=== PATIENT | male | born 1970 | race Caucasian/White ===

== ENCOUNTER 2017-03-02 11:39 | Emergency (ER) | payer SELFPAY ==
[2017-03-02 11:55] VITALS: BP 149/91
--- NOTE | 2017-03-02 12:06 | UC ---
Throat Pain/Nasal Giovanni HPI - HPI Summary HPI Summary: sinus pain and pressure x 3 weeks + pnd, cough, nasal congestion , no fever, no chills - History of Current Complaint Chief Complaint: UCRespiratory Stated Complaint: COLD SYMPTOMS Time Seen by Provider: 03/02/17 11:47 Hx Obtained From: Patient Onset/Duration: Gradual Onset, Lasting Weeks - 3, Still Present Severity: Moderate Cough: Nonproductive Associated Signs & Symptoms: Positive: Sinus Discomfort, Nasal Discharge. Negative: Fever, Rash - Allergies/Home Medications Allergies/Adverse Reactions: Allergies Allergy/AdvReac Type Severity Reaction Status Date / Time No Known Allergies Allergy Verified 03/02/17 11:55 Home Medications: Home Medications Omeprazole CAP* [Prilosec CAP* 20 MG] 20 mg PO DAILY 03/02/17 [History Confirmed 03/02/17] PMH/Surg Hx/FS Hx/Imm Hx Previously Healthy: Yes GI/ History: Gastroesophageal Reflux Other History Of: Negative For: HIV, Hepatitis B, Hepatitis C, Anticoagulant Therapy - Surgical History Surgical History: None - Family History Known Family History: Negative: Diabetes - Social History Alcohol Use: Occasionally Substance Use Type: None Smoking Status (MU): Former Smoker Type: Cigarettes Amount Used/How Often: 1 1/2 ppd Length of Time of Smoking/Using Tobacco: started at age 17 When Did the Patient Quit Smoking/Using Tobacco: 2006 Review of Systems Constitutional: Negative Skin: Negative Eyes: Negative ENT: Nasal Discharge, Sinus Congestion, Sinus Pain/Tenderness Respiratory: Cough Is Patient Immunocompromised?: No All Other Systems Reviewed And Are Negative: Yes Physical Exam Triage Information Reviewed: Yes Appearance: Well-Appearing, No Pain Distress, Well-Nourished Vital Signs: Initial Vital Signs Temp 97.3 F 03/02/17 11:44 Pulse 80 03/02/17 11:44 Resp 16 03/02/17 11:44 BP 149/91 03/02/17 11:44 Pulse Ox 100 03/02/17 11:44 Vital Signs Reviewed: Yes ENT: Positive: Normal ENT inspection, Hearing grossly normal, Pharynx normal, Nasal congestion, Nasal drainage Neck: Positive: Supple, Nontender, No Lymphadenopathy Respiratory: Positive: Chest non-tender, Lungs clear, Normal breath sounds Cardiovascular: Positive: RRR, No Murmur, Pulses Normal Skin Exam: Normal Throat Pain/Nasal Course/Dx - Differential Dx/Diagnosis Provider Diagnoses: Sinusitis Discharge - Discharge Plan Condition: Stable Disposition: HOME Prescriptions: Amoxicillin/Clavulanate TAB* [Augmentin TAB 875*] 875 mg PO BID #20 tab Patient Education Materials: Sinusitis (ED) Referrals: No Primary Care Phys,NOPCP [Primary Care Provider] - 7 Days
== END 2017-03-02 12:08 | disposition home or self-care (01) ==
LOC: UCCORT 11:39
DX: J32.9 Chronic sinusitis, unspecified (principal); Z87.891 Personal history of nicotine dependence
CPT/HCPCS: 99212; G0463

== ENCOUNTER 2017-04-22 09:35 | Emergency (ER) | payer SELFPAY ==
--- NOTE | 2017-04-22 09:55 | UC ---
Throat Pain/Nasal Giovanni HPI - HPI Summary HPI Summary: 47 year old male presents with sore throat. - History of Current Complaint Stated Complaint: SORE THROAT Time Seen by Provider: 04/22/17 09:55 Hx Obtained From: Patient Onset/Duration: Sudden Onset Severity: Moderate Pain Scale Used: 0-10 Numeric - 5 Cough: Nonproductive Associated Signs & Symptoms: Positive: Negative - Allergies/Home Medications Allergies/Adverse Reactions: Allergies Allergy/AdvReac Type Severity Reaction Status Date / Time No Known Allergies Allergy Verified 04/22/17 10:00 Home Medications: Home Medications Dextromethorphan-Phenylephrine [Theraflu Severe Cold & Co] 2 tab PO Q4H PRN [History Confirmed 04/22/17] PMH/Surg Hx/FS Hx/Imm Hx Previously Healthy: Yes Other History Of: Negative For: HIV, Hepatitis B, Hepatitis C, Anticoagulant Therapy - Surgical History Surgical History: None - Family History Known Family History: Negative: Diabetes - Social History Alcohol Use: Occasionally Substance Use Type: None Smoking Status (MU): Former Smoker Type: Cigarettes Amount Used/How Often: 1 1/2 ppd Length of Time of Smoking/Using Tobacco: started at age 17 When Did the Patient Quit Smoking/Using Tobacco: 2006 Review of Systems Constitutional: Negative Skin: Negative Eyes: Negative ENT: Nasal Discharge, Sinus Congestion Respiratory: Negative Cardiovascular: Negative Gastrointestinal: Negative Genitourinary: Negative Motor: Negative Neurovascular: Negative Musculoskeletal: Negative Neurological: Negative Psychological: Negative All Other Systems Reviewed And Are Negative: Yes Physical Exam Triage Information Reviewed: Yes Vital Signs Reviewed: Yes Eye Exam: Normal ENT: Positive: Nasal congestion, Nasal drainage, Tonsillar swelling Dental Exam: Normal Neck exam: Normal Neck: Positive: 1 Respiratory Exam: Normal Cardiovascular Exam: Normal Abdominal Exam: Normal Musculoskeletal Exam: Normal Neurological Exam: Normal Psychological Exam: Normal Skin Exam: Normal Throat Pain/Nasal Course/Dx - Differential Dx/Diagnosis Provider Diagnoses: pharyngitis. post nasal drip Discharge - Discharge Plan Condition: Stable Disposition: HOME Prescriptions: Amoxicillin/Clavulanate TAB* [Augmentin TAB 875*] 875 mg PO BID #20 tab LoraTADine TAB(NF) [Claritin 10 MG TAB(NF)] 10 mg PO DAILY #30 tab Magic M W2 Jose D/Maal/Nyst/Lido* 5 ml SWISH SPIT QID PRN #120 ml PRN Reason: Pain Patient Education Materials: Pharyngitis (ED) Referrals: No Primary Care Phys,NOPCP [Primary Care Provider] -
[2017-04-22 10:04] VITALS: BP 149/89
--- NOTE | 2017-04-25 09:11 | UC ---
Progress - Progress Note Progress Note: please inform pt of throat cx neg for strep. pt can stop abx, they are not indicated.
== END 2017-04-22 10:45 | disposition home or self-care (01) ==
LOC: UCCORT 09:35
DX: J02.9 Acute pharyngitis, unspecified (principal); R09.82 Postnasal drip; Z87.891 Personal history of nicotine dependence
CPT/HCPCS: 87070; 99212; G0463

== ENCOUNTER 2017-12-05 18:31 | Emergency (ER) | payer SELFPAY ==
[2017-12-05 18:47] VITALS: BP 145/103
--- NOTE | 2017-12-05 19:17 | UC ---
General HPI - HPI Summary HPI Summary: States he noticed that the inner aspect of his left cheek was bulkier than the right about 2 weeks ago. He started rinsing with salt water but it continued to feel 'boggy'. He chews tobacco but usually murray it on the opposite cheek. Also had GERD and has been on omeprazole for many years. States he has not been to the dentist in many years and he has many issues with his teeth. - History of Current Complaint Chief Complaint: UCGeneralIllness Stated Complaint: ORAL CONCERN Time Seen by Provider: 12/05/17 18:51 Hx Obtained From: Patient Onset/Duration: Sudden Onset, Lasting Weeks Onset Severity: Mild Current Severity: Mild Pain Intensity: 0 - Allergy/Home Medications Allergies/Adverse Reactions: Allergies Allergy/AdvReac Type Severity Reaction Status Date / Time No Known Allergies Allergy Verified 04/22/17 10:00 PMH/Surg Hx/FS Hx/Imm Hx Previously Healthy: Yes GI/ History: Gastroesophageal Reflux Other History Of: Negative For: HIV, Hepatitis B, Hepatitis C, Anticoagulant Therapy - Surgical History Surgical History: None - Family History Known Family History: Negative: Diabetes - Social History Alcohol Use: Rare Substance Use Type: None Smoking Status (MU): Former Smoker Type: Cigarettes, Smokeless Tobacco Amount Used/How Often: 1 1/2 ppd Length of Time of Smoking/Using Tobacco: started at age 17 When Did the Patient Quit Smoking/Using Tobacco: 2006 - Immunization History Most Recent Influenza Vaccination: Not the 2016/2017 Season Review of Systems Constitutional: Negative All Other Systems Reviewed And Are Negative: Yes Physical Exam Triage Information Reviewed: Yes Appearance: Well-Appearing, No Pain Distress, Well-Nourished Vital Signs: Initial Vital Signs Temp 98.2 F 12/05/17 18:42 Pulse 75 12/05/17 18:42 Resp 17 12/05/17 18:42 BP 145/103 12/05/17 18:42 Pulse Ox 99 12/05/17 18:42 Vital Signs Reviewed: Yes Eyes: Positive: Conjunctiva Clear ENT: Positive: Hearing grossly normal, Pharynx normal, TMs normal, Other - oral mucosa normal, more prominent on left than right. No masses along buccal mucosa , no pigmentation, no ulceration, no leukoplakia. No parotid enlargment Dental: Positive: Gross Decay/Caries @ - multiple Neck: Positive: Supple, Nontender, No Lymphadenopathy Respiratory: Positive: Chest non-tender, Lungs clear, Normal breath sounds, No respiratory distress Cardiovascular: Positive: RRR, Pulses Normal, Brisk Capillary Refill Course/Dx - Course Course Of Treatment: discussed with patient dental care and abstain from tobacco. - Differential Dx - Multi-Symptom Provider Diagnoses: Prominent Buccal mucosa without mass Discharge - Sign-Out/Discharge Documenting (check all that apply): Patient Departure - Discharge Plan Condition: Stable Disposition: HOME Patient Education Materials: Gastroesophageal Reflux Disease (ED), Smokeless Tobacco Keratosis (DC) Referrals: No Primary Care Phys,NOPCP [Primary Care Provider] - [facility] [Outside] - Billing Disposition and Condition Condition: STABLE Disposition: Home
== END 2017-12-05 19:15 | disposition home or self-care (01) ==
LOC: UCCORT 18:31
DX: R22.0 Localized swelling, mass and lump, head (principal)
CPT/HCPCS: 99211; G0463

== ENCOUNTER 2018-11-26 14:50 | Emergency (ER) | payer SELFPAY ==
[2018-11-26 15:04] VITALS: BP 147/81
--- NOTE | 2018-11-26 15:06 | UC ---
Skin Complaint HPI - HPI Summary HPI Summary: Patient is a 48 year old , who present today with a rash in pubic area for past 3 days. Some itching and discomfort, no discharge. Had sex with a new partner 3 weeks ago. Denies any other symptoms- no fever or chills. No urinary problems. Tried neosporin which did not help. - History of Current Complaint Time Seen by Provider: 11/26/18 15:00 Stated Complaint: SKIN COMP Hx Obtained From: Patient - Allergy/Home Medications Allergies/Adverse Reactions: Allergies Allergy/AdvReac Type Severity Reaction Status Date / Time No Known Allergies Allergy Verified 11/26/18 15:04 Home Medications: Home Medications Lisinopril TAB* [Prinivil TAB*] 5 mg PO DAILY 11/26/18 [History Confirmed ] PMH/Surg Hx/FS Hx/Imm Hx - Additional Past Medical History Additional PMH: Past Medical History:HTN asthma Past Surgical history:none Family history: non contributory Social history; former smoker, rare alcohol use , no substance abuse. Previously Healthy: Yes Other History Of: Negative For: HIV, Hepatitis B, Hepatitis C, Anticoagulant Therapy - Surgical History Surgical History: None - Family History Known Family History: Positive: Non-Contributory Negative: Diabetes - Social History Alcohol Use: Rare Substance Use Type: None Smoking Status (MU): Former Smoker Type: Cigarettes, Smokeless Tobacco Amount Used/How Often: 1 1/2 ppd Length of Time of Smoking/Using Tobacco: started at age 17 When Did the Patient Quit Smoking/Using Tobacco: 2006 - Immunization History Most Recent Influenza Vaccination: Not the 2017/2017 Season Review of Systems All Other Systems Reviewed And Are Negative: Yes Constitutional: Positive: Negative Skin: Positive: Rash Eyes: Positive: Negative ENT: Positive: Negative Respiratory: Positive: Negative Cardiovascular: Positive: Negative Gastrointestinal: Positive: Negative Genitourinary: Positive: Negative Motor: Positive: Negative Neurovascular: Positive: Negative Musculoskeletal: Positive: Negative Neurological: Positive: Negative Psychological: Positive: Negative Is Patient Immunocompromised?: No Physical Exam - Summary Physical Exam Summary: Vital Signs Reviewed: Yes A+Ox3, no distress Eyes: Conjunctiva Clear ENT: Hearing grossly normal neck: supple Respiratory: Positive: No respiratory distress, No accessory muscle use Cardiovascular: skin color reflect adequate perfusion Musculoskeletal Exam: OBANDO x 4 without difficulty Neurological: Positive: Alert, ambulatory without difficulty Psychological: Positive: Normal Response To Family Skin: there is a vesicular rash - few vescicles noted with erythema. One area of crusting in his pubic area, Triage Information Reviewed: Yes Vital Signs Reviewed: Yes Course/Dx - Course Course Of Treatment: During the visit today, we discussed the findings- herpetic lesion given recent h/o sex with a new partner, not in contact with her anymore. Will also give keflex if there is any bacterial infection , to be feilled if no better in 3 days since he does ot have pcp. Referral put in for PCP. I will prescribe the medication to the pharmacy . Patient expressed understanding . - Diagnoses Provider Diagnosis: Herpes genitalia Discharge - Sign-Out/Discharge Documenting (check all that apply): Patient Departure All imaging exams completed and their final reports reviewed: No Studies - Discharge Plan Condition: Stable Disposition: HOME Prescriptions: Cephalexin CAP* [Keflex CAP*] 500 mg PO TID 10 Days #30 cap ValACYclovir (*) [Valtrex 1 GM(*)] 1 gm PO BID 7 Days #14 tab Patient Education Materials: Genital Herpes Simplex (ED) Referrals: [facility] [Outside] - 1 Week No Primary Care Phys,NOPCP [Primary Care Provider] - Additional Instructions: Start taking valtrex. It has been prescribed to the pharmacy . If your symptoms get worse despite being on valtrex for 2 to 3 days, start keflex. Dont fill it until needed. Follow up with primary care doctor 1 week. I have put in the referral . Patients blood pressure slightly high in Urgent care today , plan follow up with PCP for better control Return to Urgent care / ER if symptoms get worse. - Billing Disposition and Condition Condition: STABLE Disposition: Home
== END 2018-11-26 15:25 | disposition home or self-care (01) ==
LOC: UCCORT 14:50
DX: A60.00 Herpesviral infection of urogenital system, unspecified (principal); I10 Essential (primary) hypertension; Z87.891 Personal history of nicotine dependence
CPT/HCPCS: 99212; G0463

== ENCOUNTER 2019-07-15 13:15 | Emergency (ER) | payer SELFPAY ==
--- NOTE | 2019-07-15 14:41 | UC ---
Throat Pain/Nasal Giovanni HPI - HPI Summary HPI Summary: 49 yo male presents with sinus symptoms. He tells me that over the last week he has had sinus pain/pressure/congestion with post nasal drip and intermittently productive cough. Has been taking mucinex with little relief. Denies fever, chills, sore throat, SOB, rash. - History of Current Complaint Stated Complaint: COUGH, SINUS Time Seen by Provider: 07/15/19 14:41 Hx Obtained From: Patient Onset/Duration: Gradual Onset Severity: Mild Pain Intensity: 3 Pain Scale Used: 0-10 Numeric - Allergies/Home Medications Allergies/Adverse Reactions: Allergies Allergy/AdvReac Type Severity Reaction Status Date / Time No Known Allergies Allergy Verified 07/15/19 14:51 Home Medications: Home Medications Amoxicillin PO (*) [Amoxicillin 875 MG (*)] 875 mg PO BID #14 tab 07/15/19 [Rx] Famotidine TAB* [Pepcid 20 MG TAB*] 20 mg PO DAILY 07/15/19 [History Confirmed 07/15/19] PMH/Surg Hx/FS Hx/Imm Hx GI/ History: Gastroesophageal Reflux Other History Of: Negative For: HIV, Hepatitis B, Hepatitis C, Anticoagulant Therapy - Surgical History Surgical History: None - Family History Known Family History: Positive: Non-Contributory Negative: Diabetes - Social History Occupation: Employed Full-time Lives: With Family Alcohol Use: Rare Substance Use Type: None Smoking Status (MU): Former Smoker Type: Cigarettes, Smokeless Tobacco Amount Used/How Often: 1 1/2 ppd Length of Time of Smoking/Using Tobacco: started at age 17 When Did the Patient Quit Smoking/Using Tobacco: 2006 - Immunization History Most Recent Influenza Vaccination: Not the 2017/2017 Season Review of Systems All Other Systems Reviewed And Are Negative: No Constitutional: Positive: Negative Skin: Positive: Negative Eyes: Positive: Negative ENT: Positive: Nasal Discharge, Sinus Congestion, Sinus Pain/Tenderness Respiratory: Positive: Cough Cardiovascular: Positive: Negative Gastrointestinal: Positive: Negative Neurological/Mental Status: Positive: Negative Psychological: Positive: Negative Physical Exam - Summary Physical Exam Summary: GENERAL: NAD. WDWN. No pain distress. SKIN: No rashes, sores, lesions, or open wounds. HEENT: Head: AT/NC Eyes: EOM intact. Conjunctiva clear without inflammation or discharge. Ears: Hearing grossly normal. TMs intact, no bulging, erythema, or edema. Nose: Nasal mucosa mildly swollen and erythematous with yellow/ clear discharge. TTP maxillary and frontal sinus. Positive post nasal drip Throat: Posterior oropharynx without exudates, erythema, or tonsillar enlargement. Uvula midline. NECK: Supple. Nontender. No lymphadenopathy. CHEST: CTAB. No r/r/w. No accessory muscle use. Breathing comfortably and in no distress. CV: RRR. Pulses intact. NEURO: Alert. PSYCH: Age appropriate behavior. Triage Information Reviewed: Yes Vital Signs: Vital Signs: Temp Pulse Resp BP Pulse Ox 98.2 F 86 18 143/82 100 07/15/19 14:47 07/15/19 14:47 07/15/19 14:47 07/15/19 14:47 07/15/19 14:47 Vital Signs Reviewed: Yes Throat Pain/Nasal Course/Dx - Course Course Of Treatment: Sinusitis - Differential Dx/Diagnosis Provider Diagnosis: Sinusitis Discharge ED - Sign-Out/Discharge Documenting (check all that apply): Patient Departure All imaging exams completed and their final reports reviewed: No Studies - Discharge Plan Condition: Stable Disposition: HOME Prescriptions: Amoxicillin PO (*) [Amoxicillin 875 MG (*)] 875 mg PO BID #14 tab Patient Education Materials: Sinusitis (ED) Referrals: No Primary Care Phys,NOPCP [Primary Care Provider] - Additional Instructions: If you develop a fever, shortness of breath, chest pain, new or worsening symptoms - please call your PCP or go to the ED immediately. Your blood pressure was high at todays visit. Please see your primary provider within 4 weeks for recheck and re-evaluation. - Billing Disposition and Condition Condition: STABLE Disposition: Home
[2019-07-15 14:51] VITALS: BP 143/82
== END 2019-07-15 15:14 | disposition home or self-care (01) ==
LOC: UCCORT 13:15
DX: J32.9 Chronic sinusitis, unspecified (principal); Z87.891 Personal history of nicotine dependence; K21.9 Gastro-esophageal reflux disease without esophagitis; Z79.899 Other long term (current) drug therapy
CPT/HCPCS: 99212; G0463